=== PATIENT | female | born 1995 | race Asian ===

== ENCOUNTER → 2017-03-12 | Outpatient (CLI) | payer OTHER ==
--- NOTE | 2017-03-12 15:22 | DIAGNOSTIC IMAGING REPORT ---
PELVIC ULTRASOUND CLINICAL HISTORY: FREQUENT MENSTRUATION COMPARISON STUDY: None. TECHNIQUE: Transabdominal and transvaginal sonography of the pelvis was performed. FINDINGS: The uterus measures 6.8 x 2.9 x 3.8 cm. Endometrium thickness is normal, measuring 7 mm. No uterine lesions are identified. The right ovary measures 3 x 2.1 x 1.9 cm and the left measures 2.5 x 1.5 x 1.8 cm. Color flow was identified within each ovary. There is a [id number] amount of fluid within the pelvis. IMPRESSION: 1. Normal sonographic appearance of the uterus and ovaries. Normal endometrial thickness of 7 mm. 2. Mild to moderate amount of fluid within the pelvis. This is likely physiologic although slightly greater than expected. Electronically signed by: Rishabh Osuna M.D. 03/12/2017 3:21 PM Dictated Date/Time: 03/12/2017 3:19 PM
--- NOTE | 2017-03-15 08:30 | DIAGNOSTIC IMAGING REPORT ---
PELVIC ULTRASOUND CLINICAL HISTORY: FREQUENT MENSTRUATION COMPARISON STUDY: None. TECHNIQUE: Transabdominal and transvaginal sonography of the pelvis was performed. FINDINGS: The uterus measures 6.8 x 2.9 x 3.8 cm. Endometrium thickness is normal, measuring 7 mm. No uterine lesions are identified. The right ovary measures 3 x 2.1 x 1.9 cm and the left measures 2.5 x 1.5 x 1.8 cm. Color flow was identified within each ovary. There is a [id number]-gcjghvlk amount of fluid within the pelvis. IMPRESSION: 1. Normal sonographic appearance of the uterus and ovaries. Normal endometrial thickness of 7 mm. 2. Mild to moderate amount of fluid within the pelvis. This is likely physiologic although slightly greater than expected. Electronically signed by: Rishabh Osuna M.D. 03/12/2017 3:21 PM Dictated Date/Time: 03/12/2017 3:19 PM
== END | disposition home or self-care (01) ==
LOC: C.ULTR 14:07
PROVIDERS: ATTEND Physician Assistant
DX: N92.0 Excessive and frequent menstruation with regular cycle (principal)